=== PATIENT | male | born 1955 | race Caucasian/White ===

== ENCOUNTER 2017-08-31 06:48 | Day surgery (SDC) | payer BC ==
[~2017-08-31 06:48] MED LIST: Lactated Ringers 1,000 ML IV SCH
[2017-08-31] MEDS ORDERED: Propofol 200 MG/20 ML SDV IV ONE (08:00)
--- NOTE | 2017-08-31 08:31 | PCM.OPNOTE ---
- General Post-Op/Procedure Note Date of Surgery/Procedure: 08/31/17 Operative Procedure(s): c scope Findings: scattered diverticuli Pre Op Diagnosis: screening Post-Op Diagnosis: diverticulosis Anesthesia Technique: MAC Primary Surgeon: Everette Jacome Anesthesia Provider: Jim Velásquez Pathology: none Complications: None Condition: Good Free Text/Narrative:: repeat c scope in 10 yrs see dictation
--- NOTE | 2017-08-31 10:08 | OR ---
DATE OF OPERATION: 08/31/2017 SURGEON: Everette Jacome MD PROCEDURE PERFORMED: Colonoscopy. PREOPERATIVE DIAGNOSIS: Need for screening C-scope. POSTOPERATIVE DIAGNOSIS: Sigmoid diverticulosis. INDICATIONS FOR PROCEDURE: This is a 62-year-old white male who presents for screening colonoscopy. He was offered and accepted the same. DESCRIPTION OF PROCEDURE: After an excellent IV sedation was administered, digital rectal exam was performed. No marked abnormality was noted. Flexible colonoscope was inserted and advanced into the cecum without difficulty. The prep was excellent. The following findings were noted: Ascending colon, unremarkable. Transverse colon, unremarkable. Descending colon, scattered diverticula. Sigmoid, scattered diverticula. Rectum and anus unremarkable. Colon was deflated, scope was removed. The patient tolerated the procedure well, and was taken to recovery in good condition. Repeat scope in 10 years. /[id number] /MODL
== END 2017-08-31 09:23 | disposition home or self-care (01) ==
LOC: FB.SDS 06:48
PROVIDERS: ATTEND Surgery
DX: Z12.11 Encounter for screening for malignant neoplasm of colon (principal); K57.30 Diverticulosis of large intestine without perforation or abscess without bleeding; I10 Essential (primary) hypertension; E78.5 Hyperlipidemia, unspecified; Z96.641 Presence of right artificial hip joint; Z79.82 Long term (current) use of aspirin; Z79.899 Other long term (current) drug therapy; Z87.891 Personal history of nicotine dependence
CPT/HCPCS: 45378; J2704; J7120